=== PATIENT | female | born 1985 | race Caucasian/White ===

== ENCOUNTER 2018-06-21 23:17 | Emergency (ER) | payer SELFPAY ==
[~2018-06-21] VITALS: Ht 154.9 cm; Wt 63.4 kg
[~2018-06-21 23:17] MED LIST: CALC-662 PO; CIPR500T4 PO; CYCL10TA7 PO; FOL8 PO; HYDR-906 PO; IBUP-1542 PO; PREN-46 PO
[2018-06-21 23:30] VITALS: BP 98/51; PULSE 98; RESP 22; Ht 154.9 cm; Wt 63.4 kg
== END 2018-06-22 00:09 | disposition left against medical advice (07) ==
LOC: FTE 23:17
DX: Z53.21 Procedure and treatment not carried out due to patient leaving prior to being seen by health care provider (principal)